=== PATIENT | male | born 1950 | race Caucasian/White ===

== ENCOUNTER → 2018-11-10 | Outpatient (CLI) | payer OTHER | LOC: CAT 10:30 | DX: Z13.6 Encounter for screening for cardiovascular disorders (principal); E78.00 Pure hypercholesterolemia, unspecified; I25.10 Atherosclerotic heart disease of native coronary artery without angina pectoris ==

== ENCOUNTER → 2018-11-14 | Outpatient (CLI) | payer OTHER ==
[~2018-11-14] VITALS: Ht 182.9 cm; Wt 95.3 kg
[~2018-11-14] MED LIST: ASPIR 8181 MG PO; CARDIZEM CD 18180 M3 PO; LISINOPRIL20 MG PO; PACERONE 200 M200 M1 PO; XARELTO10 MG PO
[2018-11-14 07:04] VITALS: BP 119/76
--- NOTE | 2018-11-14 08:56 | EKG ---
[place] [address] [place] [address] ELECTROCARDIOGRAM REPORT Name: KD DAVALOS II [id number] ������������������ Admission: 11/14/18 ������������������ Attend Phys: Uriel Milton MD, Discharge: ������������������ Date of : 52 Report #: [id number] ����������������������������������������������������������������� [id number] THIS REPORT FOR: //name// [facility] Test Date: 2018-11-14 Test Time: 08:40:43 Pat Name: KD DAVALOS Department: Room: Gender: M Trade Analyst: TALI : 1950 Requested By: Gabriel Patricia Order Number: [id number] MD: Gabriel Patricia Measurements Intervals [place] Rate: 75 P: 66 ME: 209 QRS: 30 QRSD: 106 T: 15 QT: 423 QTc: 473 Interpretive Statements Sinus rhythm Probable left atrial enlargement No previous ECG available for comparison Electronically Signed On 11-14-2018 8:55:55 CDT by Gabriel Patricia [email or web address] ��������������������������������������������� <ELECTRONICALLY SIGNED> ���������������������������������������� By: Gabriel Patricia MD, [facility] ��������������������������������������������� 11/14/18 0855 0840 0840 Gabriel Patricia MD, FACC /EPI
--- NOTE | 2018-11-14 09:06 | TEE ---
[facility] [address] [place] [address] TRANSESOPHAGEAL ECHOCARDIOGRAM Name: KD DAVALOS II Room #: [facility] Qasim#: [id number] ������������� Admission: 11/14/18 ������������� Attend Phys: Uriel Milton, Discharge: ��� ������������� ��� Date of : 52 Date of Service: 11/14/18 0906 �� Report #: [id number] �������� ��������������������������������������������[id number] THIS REPORT FOR: //name// APPROVED REPORT Study performed: 11/14/2018 07:55:27 EXAM: Transesophageal Echocardiogram/Dopper with Cardioversion Patient Location: Out-Patient Room #: CV 9 Status: routine BSA: 2.18 HR: 61 bpm BP: 119/76 mmHg Rhythm: Atrial Flutter Other Information Study Quality: Excellent Indications Atrial flutter Echo Enhancing Agent Indication: Rule out Shunt Agent(s) / Amount(s) Used: Agitated Saline 7 cc Procedure After obtaining informed consent, patient underwent transesophageal echo in the [employer]. Type of Sedation : Conscious Sedation Sedation was administered by Elizabeth. Sedation was achieved intravenously with: Versed (7 mg) Fentanyl (100 mcg) Transesophageal probe was inserted and advanced into esophagus without difficulty by Gabriel Patricia MD. Echo enhancement indication: R/O Septal defect. Echo enhancement agent administered: Agitated Saline The VICKEY was performed without complications. Synchronized Cardioversion acheived with 20, 100, 200 Joules after 3 attempt(s). Rhythm following Synchronized Cardioversion: Normal Sinus Rhythm Throughout the procedure, the blood pressure, pulse oximetry, cardiac rhythm, and rate were monitored. The patient tolerated the procedure without adverse effects. Recovery [facility] [address] [place] [address] TRANSESOPHAGEAL ECHOCARDIOGRAM Name: ANOOPKD CHRIS MONTSE Room #: BRUNILDA Tripp#: [id number] ������������� Admission: 11/14/18 ������������� Attend Phys: Uriel Milton, Discharge: ��� ������������� ��� Date of : 52 Date of Service: 11/14/18 0906 �� Report #: [id number] �������� ��������������������������������������������[id number] from conscious sedation was uneventful and vital signs were stable. Left Ventricle The left ventricle is normal size. There is normal LV segmental wall motion. There is normal left ventricular wall thickness. Left ventricular systolic function is normal. The left ventricular ejection fraction is within the normal range. LVEF is 55-60%. Right Ventricle The right ventricle is normal size. The right ventricular systolic function is normal. Atria Left atrium is dilated. No thrombus is visualized in the left atrium or appendage. No shunting by contrast bubble injection The right atrium size is normal. Aortic Valve The aortic valve is normal in structure. No aortic regurgitation is present. There is no aortic valvular stenosis. Mitral Valve The mitral valve is normal in structure. Mild mitral regurgitation. No evidence of mitral valve stenosis. Tricuspid Valve The tricuspid valve is normal in structure. There is no tricuspid valve regurgitation noted. Pulmonic Valve The pulmonary valve is normal in structure. There is no pulmonic valvular regurgitation. Great Vessels The aortic root is normal in size. The ascending aorta is normal in size. IVC is normal in size and collapses >50% with inspiration. Pericardium There is no pericardial effusion. <Conclusion> Left ventricular systolic function is normal. There is normal LV segmental wall motion. LVEF is 55-60%. [facility] [address] [place] [address] TRANSESOPHAGEAL ECHOCARDIOGRAM Name: KD DAVALOS Room #: [facility]#: [id number] ������������� Admission: 11/14/18 ������������� Attend Phys: Uriel Milton, Discharge: ��� ������������� ��� Date of : 52 Date of Service: 11/14/18905 �� Report #: [id number] �������� ��������������������������������������������[id number] Left atrium is dilated. No thrombus is visualized in the left atrium or appendage. No shunting by contrast bubble injection The aortic valve is normal in structure. No aortic regurgitation or stenosis. The mitral valve is normal in structure. Mild mitral regurgitation. There is no pericardial effusion. Successful cardioversion of atrial flutter to sinus rhythm following 3 biphasic synchronous joules shocks ��������������������������������������������� <ELECTRONICALLY SIGNED> ���������������������������������������� By: Gabriel Patricia MD, [facility] ��������������������������������������������� 11/14/18905 5 0906 Gabriel Patricia MD, FACC /INF
--- NOTE | 2018-11-14 09:23 | NUR ---
RN HAD PT STAND AT BEDSIDE, PT MIDLY UNSTEADY. RN ASSISTED PT BACK TO BED AND WILL WAIT LONGER AND TRY AMBULATION AGAIN. AAOX4, SPEAKING IN COMPLETE SENTENCES, SKIN PWD, NAD NOTED. VSS. PT AT BEDSIDE.
== END | disposition home or self-care (01) ==
LOC: CATH 06:39
DX: I34.0 Nonrheumatic mitral (valve) insufficiency (principal); I48.92 Unspecified atrial flutter; I48.91 Unspecified atrial fibrillation; I10 Essential (primary) hypertension; Z90.49 Acquired absence of other specified parts of digestive tract; Z90.79 Acquired absence of other genital organ(s); Z79.82 Long term (current) use of aspirin; Z79.899 Other long term (current) drug therapy; Z79.01 Long term (current) use of anticoagulants; Z98.890 Other specified postprocedural states

== ENCOUNTER → 2019-05-30 | Outpatient (CLI) | payer OTHER | LOC: SJCVCIMAG 07:10 → SJCVC 13:03 → SJCVCIMAG 13:03 | DX: I10 Essential (primary) hypertension (principal) ==

== ENCOUNTER → 2019-12-12 | Outpatient (CLI) | payer OTHER | LOC: SJCVC 13:41 | PROVIDERS: ATTEND Internal Medicine Cardiovascular Disease | DX: R00.1 Bradycardia, unspecified (principal); I48.92 Unspecified atrial flutter; I10 Essential (primary) hypertension; E78.5 Hyperlipidemia, unspecified; R93.1 Abnormal findings on diagnostic imaging of heart and coronary circulation; Z82.49 Family history of ischemic heart disease and other diseases of the circulatory system ==

== ENCOUNTER → 2021-05-18 | Outpatient (CLI) | payer OTHER | LOC: SJCVC 09:59 | PROVIDERS: ATTEND Internal Medicine Cardiovascular Disease | DX: I48.92 Unspecified atrial flutter (principal); I10 Essential (primary) hypertension; E78.00 Pure hypercholesterolemia, unspecified; R93.1 Abnormal findings on diagnostic imaging of heart and coronary circulation; N20.0 Calculus of kidney; Z72.89 Other problems related to lifestyle; Z79.82 Long term (current) use of aspirin; Z79.899 Other long term (current) drug therapy; Z82.49 Family history of ischemic heart disease and other diseases of the circulatory system ==